=== PATIENT | male | born 1980 | race Caucasian/White ===

== ENCOUNTER 2019-07-22 10:01 | Inpatient (IN) | payer SELFPAY ==
[~2019-07-22] VITALS: Ht 180.3 cm; Wt 70.3 kg
[2019-07-22 10:12] VITALS: BP 126/69
--- NOTE | 2019-07-22 10:16 | NUR ---
Patient ambulated to bed 10 with family. RN evaluating patient at bedside.
--- NOTE | 2019-07-22 10:32 | NUR ---
Pt moved to bed 6.
[2019-07-22] MEDS ORDERED: NACL 0.9% 2,000 ML IV SCH (10:37)
[2019-07-22] MEDS ORDERED: NACL 0.9% 1,000 ML IV ONE (10:37)
[2019-07-22] MEDS ORDERED: ONDANSETRON 4 MG/2 ML VIAL IVP ONE (10:40)
[2019-07-22] MEDS ORDERED: PROMETHAZINE 25 MG/ML VIAL IM ONE (10:40)
--- NOTE | 2019-07-22 10:41 | NUR ---
38 y/o male presenting with c/c of vomiting x1 day, bodyaches 7/10 pain, generalized weakness. per family member pt has had hx of dka and its appearing with similar symptoms. pt a/ox4 neuro in assessment. pt nka. medical hx of dm. rx insulin. no diarreah. side rail x1. family at bedside. bowel sounds normoactive.
--- NOTE | 2019-07-22 10:57 | NUR ---
xray at bedside ; portable
--- NOTE | 2019-07-22 11:15 | NUR ---
Kurtis carias in [facility] - 07/22/19 at 1119 by MMTHEM Breathing treatment administered by respiratory therapist at bedside.
--- NOTE | 2019-07-22 11:15 | NUR ---
ABG obtained by respiratory therapist.
--- NOTE | 2019-07-22 11:15 | NUR ---
LAB AT BEDSIDE
[2019-07-22 11:26] LABS: BASOPHILS % (AUTO) 0.4 % (0.0-2.0); HEMATOCRIT 50.3 % (36-52); HEMOGLOBIN 17.2 g/dL (12.0-18.0); LYMPHOCYTES # (AUTO) 1.8 K/uL (2.0-11.5); LYMPHOCYTES % (AUTO) 27.2 % (20.5-51.1); MEAN CORPUSCULAR HEMOGLOBIN 31 pg (27-31); MEAN CORPUSCULAR HGB CONC 34 g/dL (33-37); MEAN CORPUSCULAR VOLUME 89.8 fL (80-94); MONOCYTES # (AUTO) 0.7 K/uL (0.8-1.0); MONOCYTES % (AUTO) 10.7 % (1.7-9.3); NEUTROPHILS # (AUTO) 4.1 K/uL (1.8-7.7); NEUTROPHILS % (AUTO) 61.7 % (42.2-75.2); PLATELET COUNT (AUTO) 258 K/uL (140-450); RED CELL DISTRIBUTION WIDTH 14.1 % (11.6-13.7); WHITE BLOOD COUNT (AUTO) 6.7 K/uL (4.8-10.8)
[2019-07-22 11:32] LABS: ANION GAP 30.3 (8-16); CARBON DIOXIDE 10.8 mmol/L (21-32); CHLORIDE 98 mmol/L (98-107); CREATININE 1.3 mg/dL (0.7-1.3); GFR ARICAN-AMERICAN 80 mL/min (>90); GLUCOSE 257 mg/dL (74-106); POTASSIUM 4.1 mmol/L (3.5-5.1); SODIUM SERUM 135 mmol/L (136-145); UREA NITROGEN, BLOOD 14 mg/dL (7-18)
[2019-07-22 11:43] LABS: ACETONE, SERUM SMALL (NEGATIVE)
[2019-07-22 11:47] LABS: AMYLASE 52 U/L (25-115); ASPARTATE AMINOTRANSFERASE 12 U/L (15-37); LIPASE 79 U/L (73-393); MAGNESIUM 1.8 mg/dL (1.8-2.4); TOTAL BILIRUBIN 0.8 mg/dL (0.0-1.0)
[2019-07-22] MEDS ORDERED: INSU10SU6 SUBQ (11:49)
[2019-07-22] MEDS ORDERED: SODIUM BICARBONATE 8.4% PFS 50 MEQ/50 ML SYR IVP ONE (12:20)
--- NOTE | 2019-07-22 12:20 | NUR ---
Dr. Ellsworth is evaluating the patient at bedside.
[2019-07-22] MEDS ORDERED: LORazepam 2 MG/ML VIAL IM/IVP PRN (12:35)
[2019-07-22] MEDS ORDERED: ACETAMINOPHEN 325 MG TAB PO PRN (12:35)
[2019-07-22] MEDS ORDERED: DOCUSATE SODIUM 100 MG GELCAP PO PRN (12:35)
[2019-07-22] MEDS ORDERED: HYDROcodone/APAP 5/325 MG 1 TAB TAB PO PRN (12:35)
[2019-07-22] MEDS ORDERED: MORPHINE SULFATE 2 MG/ML SYR IVP PRN (12:35)
[2019-07-22] MEDS ORDERED: ONDANSETRON 4 MG/2 ML VIAL IM/IVP PRN (12:35)
--- NOTE | 2019-07-22 13:25 | NUR ---
Patient will be admitted to care of DR PHILLIPS. Admited to TELEMETRY. Will go to room 111A. Belongings list completed; SISTER TOOK ALL BELONGING HOME, PT AWARE. Report to SIRIA LEES.
--- NOTE | 2019-07-22 13:25 | NUR ---
PT ARRIVED ON THE UNIT. OBTAINED VITALS PT APPEARS STABLE AND IN NO APPARENT DISTRESS. ALL SAFETY MEASURES ARE IN PLACE COMPLETED QUESTIONS. PERFORMED HEAD TO TOE ASSESSMENT WILL CONTINUE TO MONITOR.
[2019-07-22] MEDS ORDERED: DEXTROSE 50% 50 ML SYR IVP PRN (13:40)
[2019-07-22] MEDS ORDERED: INSULIN REGULAR, HUMAN 100 UNIT in NACL 0.9% 100 ML IV SCH ×2 (13:40)
[2019-07-22] MEDS ORDERED: HYDROmorphone 1 MG/ML AMP IVP SCH (13:45)
[2019-07-22 14:12] LABS: MAGNESIUM 1.7 mg/dL (1.8-2.4); PHOSPHORUS 2.6 mg/dL (2.5-4.9); THYROID STIMULATING HORMONE 0.68 uIU/mL (0.34-3.74)
--- NOTE | 2019-07-22 14:20 | NUR ---
TRANSFERRED PT TO ICU PT PERSONAL BELONGINGS ARE WITH HIS SISTER, GAVE REPORT TO ICU CHARGE NURSE. PT APPEARS STABLE AND IN NO APPARENT DISTRESS. ALL SAFETY MEASURES ARE IN PLACE.
[2019-07-22] MEDS ORDERED: KCL 20 MEQ/WATER INJ PREMIX 100 ML IV ONE (14:30)
[2019-07-22] MEDS: NACL 0.9% 500 ML IV SCH ×2 (14:35→16:31)
--- NOTE | 2019-07-22 14:35 | NUR ---
PT RESTING IN BED COMFORTABLY. A/O X4. MAKES NEEDS KNOWN. ST ON MONITOR. IN ROOM AIR. SPO2 100%. SKIN DRY AND WARM TO TOUCH. LUNGS CLEAR. ABDOMEN SOFT, FLAT AND NON-TENDER. HYPOACTIVE BOWEL SOUND. PERIPHERAL LINE NOTED ON RFA 20G AND LAC 18G. INTACT LINES. FLUSHED. SKIN INTACT. DENIES PAIN. DENIES NAUSEA OR VOMITING. DENIES DIZZINESS. HOB ELEVATED. BED IN LOW POSITION, LOCKED. CALL LIGHT WITHIN REACH. WILL CONTINUE TO MONITOR.
[2019-07-22 14:52] VITALS: BP 117/75
--- NOTE | 2019-07-22 15:00 | NUR ---
PT DENIES NAUSEA OR VOMITING. DENIES DIZZINESS. IN ROOM AIR. SATURATING 98%. NO SOB OR RESPIRATORY DISTRESS NOTED. WILL CONTINUE TO MONITOR.
--- NOTE | 2019-07-22 15:15 | NUR ---
BS 235. DR. AZUL AWARE. WILL START INSULIN DRIP PER ORDER.
[2019-07-22] MEDS: BLOOD GLUCOSE MONITORING 1 DEV DEV FS SCH ×9 (15:23→23:17)
[2019-07-22] MEDS ORDERED: MAGNESIUM OXIDE 400 MG TAB PO SCH (15:40)
--- NOTE | 2019-07-22 15:43 | NUR ---
PT REFUSED STRAIGHT CATH TO BE INSERTED AT THIS TIME. SAID GIVE HIM MORE TIME.
[2019-07-22 16:00] VITALS: BP 111/72
[2019-07-22 16:40] LABS: ANION GAP 24.3 (8-16); CARBON DIOXIDE 14.1 mmol/L (21-32); CREATININE 1.1 mg/dL (0.7-1.3); POTASSIUM 3.4 mmol/L (3.5-5.1)
[2019-07-22 16:44] LABS: MAGNESIUM 1.6 mg/dL (1.8-2.4); PHOSPHORUS 2.3 mg/dL (2.5-4.9)
[2019-07-22 17:23] LABS: BILIRUBIN,URINE 1+ (NEGATIVE); BLOOD, URINE 1+ (NEGATIVE); LEUKOCYTE ESTERASE ,URINE NEGATIVE (NEGATIVE); NITRITE, URINE NEGATIVE (NEGATIVE); UGLUCOSE 3+ (NEGATIVE)
[2019-07-22 17:29] LABS: BARBITURATE, URINE NEG. ng/ml (NEG <=200); BENZODIAZEPINE, URINE NEG. ng/mL (NEG <=200); CANNABINOID, URINE NEG. ng/mL (NEG <=50); COCAINE, URINE NEG. ng/mL (NEG <=300); OPIATE, URINE NEG. ng/mL (NEG <=2000); PHENCYCLIDINE SCREEN,URINE NEG. ng/mL (NEG <=25)
[2019-07-22 18:00] VITALS: BP 110/76
--- NOTE | 2019-07-22 18:16 | NUR ---
NO CHANGE IN CONDITION. SR ON MONITOR. CONTINUE ON INSULIN DRIP. FAMILY AT THE BEDSIDE.
[2019-07-22] MEDS: DEXT 5% / NACL 0.45% 1,000 ML IV SCH ×2 (18:32→22:46)
[2019-07-22 18:35] LABS: APPEARANCE,URINE CLEAR (CLEAR); COLOR,URINE STRAW (YELLOW)
[2019-07-22 18:36] LABS: RBC,URINE 0-5 /HPF (0-5); WBC,URINE NONE SEEN /HPF (0-5)
--- NOTE | 2019-07-22 19:22 | NUR ---
REPORT GIVEN TO VENDING MECHANIC RN FOR CONTINUITY OF CARE. PT STABLE.
[2019-07-22] MEDS ORDERED: SODIUM PHOS / POTASSIUM PHOS 1 PKT PDR PO SCH (19:30)
--- NOTE | 2019-07-22 19:40 | NUR ---
RECEIVED PT FROM PANCHO RN. PT IS AWAKE, ALERT. FOLLOWS COMMANDS. SINUS RHYTHM ON MONITOR. NO SOB NOTED. RESPIRATIONS EVEN AND UNLABORED. CHEST AREA IS RETRACTED. ABDOMEN IS SOFT AND FLAT. BOWEL SOUNDS ACTIVE. RIJ CENTRAL LINE, TLC. INSULIN INFUSING AT 3ML/HR, NS INFUSING AT 200ML/HR. SKIN IS WARM AND DRY. CAP REFILL IS LESS THAN 3 SECONDS. HOB 30 DEGREES. BED LOCKED IN LOWEST POSITION.
[2019-07-22 20:00] VITALS: BP 112/72
--- NOTE | 2019-07-22 20:00 | NUR ---
LABS WERE DRAWN AT BEDSIDE.
[2019-07-22 20:31] LABS: CARBON DIOXIDE 18.6 mmol/L (21-32); POTASSIUM 3.6 mmol/L (3.5-5.1)
[2019-07-22] MEDS ORDERED: KCL 20 MEQ/WATER INJ PREMIX 100 ML IV SCH (21:30)
[2019-07-22 21:31] LABS: MAGNESIUM 1.6 mg/dL (1.8-2.4); PHOSPHORUS 1.4 mg/dL (2.5-4.9)
[2019-07-22 22:00] VITALS: BP 109/73
--- NOTE | 2019-07-22 22:15 | NUR ---
PT HAS EYES CLOSED. VITAL SIGNS STABLE. NO DISTRESS NOTED. WILL CONTINUE TO MONITOR.
[2019-07-22] MEDS ORDERED: MAG SULF 2000 MG/WATER PREMIX 50 ML IV ONE (22:45)
[2019-07-22] MEDS ORDERED: MAG SULF 2000 MG/WATER PREMIX 50 ML IV SCH (23:15)
[2019-07-22] MEDS ORDERED: SODIUM PHOSPHATE 15 MMOLE in NACL 0.9% 250 ML IV SCH (23:45)
[2019-07-22] MEDS: SODIUM PHOS / POTASSIUM PHOS 1 PKT PDR PO SCH (23:48)
[2019-07-23] VITALS (11 sets, daily range): BP systolic 94–125; BP diastolic 70–84
[2019-07-23] MEDS: BLOOD GLUCOSE MONITORING 1 DEV DEV FS SCH ×15 (00:05→20:21)
--- NOTE | 2019-07-23 00:12 | NUR ---
PT HAS EYES CLOSED. PT IS SELF REPOSITIONING. NO SOB NOTED, RESPIRATIONS EVEN AND UNLABORED. HOB 30 DEGREES. BED LOCKED IN LOWEST POSITION. WILL CONTINUE TO MONITOR.
[2019-07-23 00:32] LABS: ANION GAP 13.4 (8-16); CARBON DIOXIDE 21.9 mmol/L (21-32); PHOSPHORUS 1.2 mg/dL (2.5-4.9); POTASSIUM 3.3 mmol/L (3.5-5.1)
--- NOTE | 2019-07-23 02:45 | NUR ---
PT HAS EYES CLOSED. PT IS SELF REPOSITIONING. RESPIRATIONS EVEN UNLABORED. NO SOB NOTED. HOB 30 DEGREES. BED LOCKED IN LOWEST POSITION. WILL CONTINUE TO MONITOR.
[2019-07-23] MEDS: SODIUM PHOS / POTASSIUM PHOS 1 PKT PDR PO SCH (02:50)
[2019-07-23] MEDS: KCL 20 MEQ/WATER INJ PREMIX 100 ML IV SCH ×2 (03:18→05:31)
[2019-07-23] MEDS: DEXT 5% / NACL 0.45% 1,000 ML IV SCH ×3 (04:30→14:24)
--- NOTE | 2019-07-23 04:34 | NUR ---
LABS DRAWN AT BEDSIDE.
[2019-07-23 04:50] LABS: CARBON DIOXIDE 24.3 mmol/L (21-32); POTASSIUM 3.3 mmol/L (3.5-5.1)
[2019-07-23 04:54] LABS: MAGNESIUM 1.9 mg/dL (1.8-2.4); PHOSPHORUS 1.2 mg/dL (2.5-4.9)
[2019-07-23] MEDS ORDERED: KCL 20 MEQ/WATER INJ PREMIX 100 ML IV ONE (05:20)
[2019-07-23] MEDS ORDERED: SODIUM PHOS / POTASSIUM PHOS 1 PKT PDR PO ONE (05:20)
[2019-07-23] MEDS ORDERED: SODIUM PHOS / POTASSIUM PHOS 1 PKT PDR ONE (05:24)
[2019-07-23 06:14] LABS: BASOPHILS % (AUTO) 0.4 % (0.0-2.0); EOSINOPHILS % (AUTO) 0.9 % (0.0-4.0); HEMATOCRIT 38.2 % (36-52); HEMOGLOBIN 13.4 g/dL (12.0-18.0); LYMPHOCYTES # (AUTO) 1.7 K/uL (2.0-11.5); LYMPHOCYTES % (AUTO) 42.4 % (20.5-51.1); MEAN CORPUSCULAR HEMOGLOBIN 31 pg (27-31); MEAN CORPUSCULAR HGB CONC 35 g/dL (33-37); MEAN CORPUSCULAR VOLUME 88.2 fL (80-94); MONOCYTES # (AUTO) 0.4 K/uL (0.8-1.0); NEUTROPHILS # (AUTO) 1.8 K/uL (1.8-7.7); NEUTROPHILS % (AUTO) 45.3 % (42.2-75.2); PLATELET COUNT (AUTO) 175 K/uL (140-450); RED BLOOD CELL COUNT(AUTO) 4.33 MIL/uL (4.20-6.10); RED CELL DISTRIBUTION WIDTH 13.8 % (11.6-13.7)
--- NOTE | 2019-07-23 06:15 | NUR ---
PT AWAKE AND ALERT. PT USED URINAL.
--- NOTE | 2019-07-23 07:30 | NUR ---
ENDORSED TO CANDY CHAUHAN FOR CONTINUITY OF CARE.
--- NOTE | 2019-07-23 07:30 | NUR ---
RECEIVED BEDSIDE REPORT FROM GLUE MAKER BONE YOANA SHI AND JENNIFER Spencer PT SLEEPING, ROUSED BY NAME OX4. ENG/SETSWANA SPEAKING. ABLE TO FOLLOW COMMANDS. SR ON MONITOR. NO SOB NOTED. RESPIRATIONS EVEN AND UNLABORED. LUNG SOUNDS CLEAR. ABDOMEN IS SOFT AND FLAT. BOWEL SOUNDS ACTIVE. R IJ CENTRAL LINE, ASYMPTOMATIC AND DRESSING INTACT. INSULIN DRIP INFUSING AT 3ML/HR, D5 1/2NS INFUSING AT 200ML/HR. SKIN INTACT, WARM AND DRY. HOB 30 DEGREES. BED LOCKED IN LOWEST POSITION. CALL LIGHT WITHIN REACH.
--- NOTE | 2019-07-23 08:05 | NUR ---
BLOOD SUGAR CHECK DONE. PT DENIES ANY NAUSEA/ VOMITING AT THIS TIME.
--- NOTE | 2019-07-23 08:06 | NUR ---
PATIENT HAS BEEN SCREENED AND CATEGORIZED HIGH NUTRITION RISK. PATIENT WILL BE SEEN WITHIN 1-2 DAYS OF ADMISSION. 07/23/19-07/24/[address]
[2019-07-23] MEDS: PANTOPRAZOLE 40 MG INJ VIAL IVP SCH (08:10)
--- NOTE | 2019-07-23 09:10 | NUR ---
DISCHARGE PLANNIN38 Y/O MALE PATIENT FROM HOME, WHO CAME IN DUE TO INTRACTABLE NAUSEA AND VOMITING, GENERALIZED WEAKNESS X 5 DAYS. PAST MEDICAL AND SURGICAL HISTORY INCLUDE INSULIN DEPENDENT DM, RIGHT EYE CATARACTS, MEDICAL NON COMPLIANCE AND MULTIPLE HOSPITALIZATIONS FOR DKA AND RIGHT EYE CATARACT SURGERY. INITIAL DIAGNOSIS OF DIABETIC KETOACIDOSIS. LABS INCLUDE WBC 4.0, H/H 13.4/38.2, NA/K 140/3.3. ON INSULIN DRIP. PROTONIX IV. CXR ON ADMISSION NORMAL. RIJ CENTRAL LINE IN PLACE. DC PLAN PENDING ON PATIENT'S RESPONSE TO TREATMENT.
--- NOTE | 2019-07-23 09:11 | NUR ---
CALLED DR SHELL AND MADE HER AWARE OF K 3.3 AND PHOS 1.2.
[2019-07-23 09:15] LABS: MAGNESIUM 1.8 mg/dL (1.8-2.4); PHOSPHORUS 1.3 mg/dL (2.5-4.9)
[2019-07-23 09:26] LABS: ANION GAP 10.9 (8-16); CARBON DIOXIDE 22.6 mmol/L (21-32); CREATININE 0.9 mg/dL (0.7-1.3); POTASSIUM 3.5 mmol/L (3.5-5.1)
[2019-07-23] MEDS ORDERED: POTASSIUM PHOSPHATE 15 MM in NACL 0.9% 250 ML IV SCH (10:00)
--- NOTE | 2019-07-23 10:02 | NUR ---
CALLED DR MENJIVAR, MADE HIM AWARE ANION GAP HAS BEEN GOOD FOR [address] MENJIVAR SAID WILL LET DR SHELL PUT IN ORDERS WHEN SHE COMES BACK.
--- NOTE | 2019-07-23 10:59 | NUR ---
SPOKE WITH DR SHELL OVER THE PHONE. DR SHELL IS OK WITH HOLDING INSULIN DRIP AND RESUME PO DIET. ASKED IF SHE WANTS TO STOP D5 1/2NS AND CHANGE TO MAINTENANCE FLUID, DR SHELL SAID SHE WANTS TO KEEP IT.
[2019-07-23] MEDS ORDERED: DEXTROSE 50% 50 ML SYR IVP PRN (11:00)
[2019-07-23] MEDS: INSULIN LANTUS 100 UNITS/ML 10 ML VIAL SUBQ SCH (11:13)
[2019-07-23] MEDS ORDERED: BLOOD GLUCOSE MONITORING 1 DEV DEV FS SCH (11:30)
[2019-07-23] MEDS: METOCLOPRAMIDE 10 MG/2 ML INJ VIAL IVP SCH ×2 (12:06→18:00)
--- NOTE | 2019-07-23 12:30 | NUR ---
PT HAD LUNCH, REGLAN WAS GIVEN. INSTRUCT PT TO SIT UP FOR 30MIN AFTER EATING. PT VERBALIZED UNDERSTANDING.
[2019-07-23 12:45] LABS: ANION GAP 12.3 (8-16); CARBON DIOXIDE 22.5 mmol/L (21-32); CREATININE 0.9 mg/dL (0.7-1.3); POTASSIUM 3.8 mmol/L (3.5-5.1)
[2019-07-23 12:47] LABS: MAGNESIUM 1.7 mg/dL (1.8-2.4); PHOSPHORUS 1.5 mg/dL (2.5-4.9)
[2019-07-23] MEDS ORDERED: POTASSIUM PHOSPHATE 15 MM in NACL 0.9% 250 ML IV ONE (13:50)
[2019-07-23] MEDS ORDERED: SODIUM PHOS / POTASSIUM PHOS 1 PKT PDR PO SCH (14:00)
[2019-07-23] MEDS: NACL 0.45% 1,000 ML IV SCH ×3 (15:02→22:11)
[2019-07-23] MEDS: INSULIN LISPRO SLIDING SCALE 100 UNITS/ML VIAL SUBQ PRN ×3 (15:10→20:23)
--- NOTE | 2019-07-23 15:18 | NUR ---
07/23/19 RD INITIAL ASSESSMENT COMPLETED PLEASE REFER TO NUTRITION ASSESSMENT UNDER CARE ACTIVITY FOR ESTIMATED NUTRITIONAL NEEDS. 1. CONTINUE NPO EXCEPT MEDS 2. WHEN MEDICALLY APPROPRIATE, [facility] 3. NUTRITION EDUCATION WAS PROVIDED ON [facility] DIET AND PTS SISTER ACCEPTED 4. RD TO FOLLOW-UP 2-3 DAYS, HIGH RISK NIC MAYEN RD
[2019-07-23] MEDS ORDERED: MAG SULF 2000 MG/WATER PREMIX 50 ML IV SCH (16:00)
--- NOTE | 2019-07-23 17:53 | NUR ---
TRANSFERRED TO TELE 105B. REPORT GIVEN TO SAVANNA LEES.
--- NOTE | 2019-07-23 17:56 | NUR ---
RECEIVED REPORT FROM YOANA VILLANUEVA PATIENT IN STABLE CONDITION, IV FLUIDS CONTINUES, VITALS SIGNS STABLE. WILL CONTINUE TO MONITOR.
--- NOTE | 2019-07-23 19:04 | NUR ---
RECEIVED BEDSIDE REPORT FROM PC MAINTENANCE TECHNICIAN YOANA SHI AND JENNIFER Spencer PT SLEEPING, ROUSED BY NAME OX4. ENG/KAZAKH SPEAKING. ABLE TO FOLLOW COMMANDS. SR ON MONITOR. NO SOB NOTED. RESPIRATIONS EVEN AND UNLABORED. LUNG SOUNDS CLEAR. ABDOMEN IS SOFT AND FLAT. BOWEL SOUNDS ACTIVE. R IJ CENTRAL LINE, ASYMPTOMATIC AND DRESSING INTACT. INSULIN DRIP INFUSING AT 3ML/HR, D5 1/2NS INFUSING AT 200ML/HR. SKIN INTACT, WARM AND DRY. HOB 30 DEGREES. BED LOCKED IN LOWEST POSITION. CALL LIGHT WITHIN REACH. Addendum: 07/23/19 at 1908 by Simba Villagomez RN WRONG TIME, PLEASE DISCARD
--- NOTE | 2019-07-23 19:06 | NUR ---
ENDORSED CARE TO CONCHE OPERATOR NURSE. PATIENT IN STABLE CONDITION
--- NOTE | 2019-07-23 19:07 | NUR ---
RECEIVED PT IN STABLE CONDITION FROM AM NURSE FOR CONTINUITY OF CARE. AWAKE .ALERT AND ORIENTED X4. ON TELE MONITOR. WITH NO C/O ANY DISCOMFORT NOR PAIN NOTED. IVF INFUSING WELL ON THE RT IJ CENTRAL LINE TRIPLE LUMEN. CLEAR AND PATENT. WITH FAMILY AT BEDSIDE. PLAN OF CARE DISCUSSED AND VERBALIZED UNDERSTANDING. BED ON LOW POSITION. FREQ ROUNDS NEEDED. CALL LIGHT PLACED WITHIN EASY REACH. WILL CONTINUE TO MONITOR.
[2019-07-23] MEDS ORDERED: POTASSIUM PHOSPHATE 15 MM in NACL 0.9% 250 ML IV PRN (20:00)
--- NOTE | 2019-07-23 20:23 | NUR ---
BLOOD SUGAR WAS CHECKED RESULT 241. INSULIN COVERAGE GIVEN SUB Q. PROVIDE WITH SOME SNACK. WILL CONTINUE TO MONITOR.
--- NOTE | 2019-07-23 22:00 | NUR ---
MADE ROUNDS. PT ASLEEP. NO S/S OF MANY DISCOMFORT NOTED.
--- NOTE | 2019-07-23 23:00 | NUR ---
REPORT GIVEN TO YOANA TORRES FOR CONTINUITY OF CARE. PT IN STABLE CONDITION UPON REPORTING.
--- NOTE | 2019-07-23 23:01 | NUR ---
RECEIVED REPORT FROM JOHANNA. PATIENT IS LYING IN BED WITH EYES CLOSED. NO SOB OR DISTRESS NOTED. ON ROOM, AIR. IV ACCESS ON LEFT WRIST 20 GAUGE AND RIGHT IJ TRIPLE LUMEN PATENT AND INTACT. SKIN IS INTACT. PATIENT IS AMBULATORY. BED IN LOW. CALL LIGHT PLACED WITHIN PATIENT REACH. WILL CONTINUE TO MONITOR PATIENT.
--- NOTE | 2019-07-24 00:05 | NUR ---
VITAL SIGNS DONE AND INSULIN GLUCOSE CHECKED WITH RESULT OF 274 WITH INSULIN COVERAGE GIVEN. WILL CONTINUE TO MONITOR PATIENT.
[2019-07-24 00:10] VITALS: BP 106/63
[2019-07-24] MEDS: METOCLOPRAMIDE 10 MG/2 ML INJ VIAL IVP SCH ×3 (00:37→12:21)
[2019-07-24] MEDS: INSULIN LISPRO SLIDING SCALE 100 UNITS/ML VIAL SUBQ PRN ×3 (00:46→12:19)
[2019-07-24] MEDS: BLOOD GLUCOSE MONITORING 1 DEV DEV FS SCH ×4 (00:47→12:13)
[2019-07-24 04:00] VITALS: BP 115/73
[2019-07-24] MEDS: NACL 0.45% 1,000 ML IV SCH ×2 (04:05→05:49)
--- NOTE | 2019-07-24 04:05 | NUR ---
VITAL SIGNS TAKEN AND BLOOD GLUCOSE RESULT OF 219 WITH REGULAR INSULIN COVERAGE GIVEN. WILL CONTINUE TO MONITOR PATIENT.
--- NOTE | 2019-07-24 06:47 | NUR ---
PT IN STABLE CONDITION. CALL LIGHT PLACED WITHIN PATIENT REACH. WILL ENDORSE TO AM SHIFT NURSE FOR CONTINUITY OF CARE.
--- NOTE | 2019-07-24 07:06 | NUR ---
RECEIVED BEDSIDE REPORT FROM EDGER MACHINE HELPER NURSE. PATIENT IN STABLE CONDITION.
[2019-07-24 07:07] LABS: ANION GAP 9.2 (8-16); CARBON DIOXIDE 26.9 mmol/L (21-32); CREATININE 0.6 mg/dL (0.7-1.3); POTASSIUM 3.1 mmol/L (3.5-5.1)
[2019-07-24 07:33] LABS: MAGNESIUM 1.9 mg/dL (1.8-2.4); PHOSPHORUS 2.2 mg/dL (2.5-4.9)
[2019-07-24 07:41] LABS: BASOPHILS % (AUTO) 0.5 % (0.0-2.0); EOSINOPHILS % (AUTO) 0.7 % (0.0-4.0); HEMATOCRIT 35.5 % (36-52); HEMOGLOBIN 12.6 g/dL (12.0-18.0); LYMPHOCYTES # (AUTO) 1.9 K/uL (2.0-11.5); LYMPHOCYTES % (AUTO) 50.5 % (20.5-51.1); MEAN CORPUSCULAR HEMOGLOBIN 31 pg (27-31); MEAN CORPUSCULAR HGB CONC 36 g/dL (33-37); MEAN CORPUSCULAR VOLUME 86.8 fL (80-94); MONOCYTES # (AUTO) 0.4 K/uL (0.8-1.0); MONOCYTES % (AUTO) 9.9 % (1.7-9.3); NEUTROPHILS # (AUTO) 1.4 K/uL (1.8-7.7); NEUTROPHILS % (AUTO) 38.4 % (42.2-75.2); PLATELET COUNT (AUTO) 150 K/uL (140-450); RED BLOOD CELL COUNT(AUTO) 4.09 MIL/uL (4.20-6.10); RED CELL DISTRIBUTION WIDTH 14.4 % (11.6-13.7); WHITE BLOOD COUNT (AUTO) 3.7 K/uL (4.8-10.8)
[2019-07-24 08:00] VITALS: BP 102/60
[2019-07-24] MEDS ORDERED: POTASSIUM CHLORIDE 10 MEQ TABER PO SCH (08:00)
[2019-07-24] MEDS ORDERED: metFORMIN 850 MG TAB PO SCH (08:00)
[2019-07-24] MEDS: INSULIN LANTUS 100 UNITS/ML 10 ML VIAL SUBQ SCH (08:24)
[2019-07-24] MEDS: PANTOPRAZOLE 40 MG INJ VIAL IVP SCH (08:27)
--- NOTE | 2019-07-24 09:48 | NUR ---
ACKNOWLEDGED DISCHARGE ORDER FROM DR AZUL, PATIENT IS IN BED, TALKING ON CELLPHONE. IN STABLE CONDITION. WILL PREPARE PATIENT FOR DISCHARGE.
[2019-07-24] MEDS ORDERED: SODIUM PHOS / POTASSIUM PHOS 1 PKT PDR PO SCH (11:00)
--- NOTE | 2019-07-24 11:15 | NUR ---
AT THE BEDSIDE WITH DR AZUL TO REMOVE CENTRAL LINE. CENTRAL LINE REMOVED WITH NO COMPLICATIONS. DRESSING PLACED. NO REDNESS, BLEEDING OR SWELLING NOTED. DR AZUL EDUCATING PATIENT ON THE IMPORTANCE OF FOLLOWING UP WITH MEDICATION REGIMEN. WILL FOLLOW UP WITH UROLOGIST MD AT [facility], PATIENT VERBALIZED UNDERSTANDING. PENDING LAB TO COME AT 12 FOR A REDRAW OF POTASSIUM .
[2019-07-24] MEDS ORDERED: METF850T PO (11:32)
[2019-07-24] MEDS ORDERED: LANTUS SUBQ (11:32)
--- NOTE | 2019-07-24 12:15 | NUR ---
LABS COMPLETED, POTASSIUM IS 3.8, PATIENT IS EATING LUNCH AND THEN WILL PREPARE FOR DISCHARGE, MEDICATIONS WAS ALSO GIVEN AT THIS TIME. WILL CONTINUE TO FOLLOW UP.
--- NOTE | 2019-07-24 14:00 | NUR ---
PATIENT IS READY FOR DISCHARGE, NOTE FOR WORK WAS GIVEN TO BOTH PATIENT AND SISTER, PATIENT VERBALIZED UNDERSTANDING REGARDING WARRANTY ADMINISTRATOR FOLLOW UP APPT AND MEDICATIONS. ALL QUESTIONS WERE ANSWERED. PATIENT IS TO GET DRESS FOR DISCHARGE.
--- NOTE | 2019-07-24 14:07 | NUR ---
PATIENT HAS GATHERED ALL HIS BELONGINGS, IV WAS DISCONTINUED WITH LUMEN INTACT, NO REDNESS OR SWELLING NOTED. ID BAND RELEASED. PATIENT IS IN STABLE CONDITION AND WAS ESCORTED ALONG WITH SISTER TO THE LOBBY, PATIENT WAS DISCHARGED AT THIS TIME.
== END 2019-07-24 14:07 | disposition home or self-care (01) | DRG 638 ==
LOC: MED 10:01 → MTU 12:32 → MIC 14:17 → MTU 07-23 17:30
PROVIDERS: ADMIT General Practice; ATTEND General Practice
PROC: 02HV33Z Insertion of Infusion Device into Superior Vena Cava, Percutaneous Approach (ICD-10-PCS; principal; 2019-07-22)
PROC: B548ZZA Ultrasonography of Superior Vena Cava, Guidance (ICD-10-PCS; 2019-07-22)
DX: E11.10 Type 2 diabetes mellitus with ketoacidosis without coma (principal); E87.1 Hypo-osmolality and hyponatremia; N17.9 Acute kidney failure, unspecified; A08.4 Viral intestinal infection, unspecified; E11.43 Type 2 diabetes mellitus with diabetic autonomic (poly)neuropathy; E83.39 Other disorders of phosphorus metabolism; E86.0 Dehydration; K31.84 Gastroparesis; E83.42 Hypomagnesemia; Z79.4 Long term (current) use of insulin; Z91.19 Patient's noncompliance with other medical treatment and regimen; Z98.41 Cataract extraction status, right eye; Z83.3 Family history of diabetes mellitus; Z79.899 Other long term (current) drug therapy; Z82.49 Family history of ischemic heart disease and other diseases of the circulatory system
CPT/HCPCS: 36415; 36600; 71045; 80048; 80053; 80305; 81001; 82009; 82150; 82803; 82948; 83036; 83605; 83690; 83735; 84100; 84132; 84443; 85025; 85610; 85730; 86140; 87040; 87081; 87086; 87804; 94003; 94640; 96361; 96372; 96374; 96375; 99285; C1758; C9113; G0482; J1642; J1644; J1815; J2060; J2270; J2405; J2550; J2765; J3475; J3480; J7030; Q0092

== ENCOUNTER 2022-10-22 14:25 | Inpatient (IN) | payer SELFPAY ==
[~2022-10-22] VITALS: Ht 180.3 cm; Wt 84.8 kg
[~2022-10-22 14:25] MED LIST: LANTUS SUBQ; METF-713 PO
[2022-10-22 14:36] VITALS: BP 136/79
[2022-10-22] MEDS ORDERED: PIPERACILLIN/TAZOBACTAM 3.375 GM in DEXTROSE 5% 50 ML IV ONE (15:10)
[2022-10-22] MEDS ORDERED: VANCOMYCIN 1,000 MG in DEXTROSE 5% 250 ML IV ONE (15:10)
--- NOTE | 2022-10-22 15:14 | NUR ---
RAD AT BEDSIDE
[2022-10-22] MEDS ORDERED: PIPERACILLIN/TAZOBACTAM 3.375 GM VIAL IV ONE ×2 (15:25→22:40)
[2022-10-22 15:26] LABS: BASOPHILS # (AUTO) 0.1 K/uL (0.00-0.22); BASOPHILS % (AUTO) 0.7 % (0.0-2.0); EOSINOPHILS # (AUTO) 0.3 K/uL (0-0.4); HEMATOCRIT 36.8 % (36-52); HEMOGLOBIN 12.7 g/dL (12.0-18.0); LYMPHOCYTES % (AUTO) 10.7 % (20.5-51.1); MEAN CORPUSCULAR HEMOGLOBIN 29 pg (27-31); MEAN CORPUSCULAR HGB CONC 35 g/dL (33-37); MEAN CORPUSCULAR VOLUME 84.7 fL (80-94); MONOCYTES # (AUTO) 0.8 K/uL (0.8-1.0); MONOCYTES % (AUTO) 8.6 % (1.7-9.3); NEUTROPHILS # (AUTO) 7.2 K/uL (1.8-7.7); PLATELET COUNT (AUTO) 343 K/uL (140-450); RED BLOOD CELL COUNT(AUTO) 4.34 MIL/uL (4.20-6.10); RED CELL DISTRIBUTION WIDTH 12.9 % (11.6-13.7); WHITE BLOOD COUNT (AUTO) 9.3 K/uL (4.8-10.8)
--- NOTE | 2022-10-22 15:28 | NUR ---
pt swabbed for covid(chelsi). handed to lab
--- NOTE | 2022-10-22 15:36 | NUR ---
42/M PRESENTS TO ED WITH C/O SORE TO BOTTOM OF RIGHT FOOT X1 MONTH. STATES HE WAS SEEN BY A DOCTOR IN [place] AND GIVEN AN ANTIBIOTIC OINTMENT BUT REPORTS NO RELIEF OF SYMPTOMS. PATIENT DENIES PAIN BUT STATES CONCERNS THAT TOES SEEM TO BE DEVELOPING SORES AND CHANGING COLORS. OTHERWISE PATIENT DENIES FEVERS, CHILLS, N/V/D.
[2022-10-22 15:45] LABS: ALBUMIN 2.7 g/dL (3.4-5.0); ANION GAP 7.5 (8-16); CARBON DIOXIDE 32.3 mmol/L (21-32); CREATININE 0.9 mg/dL (0.6-1.3); POTASSIUM 3.8 mmol/L (3.5-5.1)
[2022-10-22] MEDS ORDERED: VANCOMYCIN 1,000 MG VIAL ONE (15:55)
--- NOTE | 2022-10-22 17:37 | NUR ---
Patient noted to have existing wounds upon arrival to ER. Photos taken of wound and placed in chart. Wound covered with dressing. Physician informed.
[2022-10-22] MEDS ORDERED: DOCUSATE SODIUM 100 MG GELCAP PO PRN (17:40)
[2022-10-22] MEDS ORDERED: MAG SULF 2000 MG/WATER PREMIX 50 ML IV PRN (17:40)
[2022-10-22] MEDS ORDERED: MORPHINE SULFATE 2 MG/ML SYR IVP PRN (17:40)
[2022-10-22] MEDS ORDERED: ONDANSETRON 4 MG/2 ML VIAL IVP PRN (17:40)
[2022-10-22] MEDS ORDERED: ACETAMINOPHEN 325 MG TAB PO PRN (17:40)
[2022-10-22] MEDS ORDERED: ZOLPIDEM 10 MG TAB PO PRN (17:40)
[2022-10-22] MEDS ORDERED: LORazepam 2 MG/ML VIAL IVP PRN (17:40)
[2022-10-22] MEDS ORDERED: POTASSIUM CHLORIDE 10 MEQ TABER PO PRN (17:40)
[2022-10-22] MEDS ORDERED: DEXTROSE 50% 50 ML SYR IVP PRN (17:45)
[2022-10-22] MEDS ORDERED: VANCOMYCIN PER PHARMACY MC PRN (17:45)
--- NOTE | 2022-10-22 18:53 | NUR ---
NO PRINTERS AVAILABLE [facility] WORKING TO PRINT OUT WOUND PICTURES, ADMIN MADE AWARE.
--- NOTE | 2022-10-22 19:17 | NUR ---
Pt report given to YOANA LUCERO. Transfer of care at this time.
--- NOTE | 2022-10-22 20:01 | NUR ---
Meal provided to pt according to diet orders. Tolerated well.
--- NOTE | 2022-10-22 21:30 | NUR ---
Patient will be admitted to care of MD Ralph. Admited to Tele. Will go to room 108A. Belongings list completed. Report given to YOANA Falcon. Questions/concerns answered.
--- NOTE | 2022-10-22 21:30 | NUR ---
NURSE REPORT REPORT OBTAINED FROM THE ER NURSE NIC. SHE HAD BROUGHT THE PATIENT VIA GURNEY AND GAVE REPORT ON THE UNIT. VSS. AFEB. NO C/O PAIN OR DISCOMFORT. PATIENT JUST WENT TO SLEEP WHEN HE CAME TO THE ROOM.
[2022-10-22] MEDS: BLOOD GLUCOSE MONITORING 1 DEV DEV FS SCH (22:52)
[2022-10-22] MEDS: PIPERACILLIN/TAZOBACTAM 3.375 GM in DEXTROSE 5% 50 ML IV SCH (22:56)
[2022-10-22] MEDS: INSULIN LISPRO SLIDING SCALE 100 UNITS/ML VIAL SUBQ PRN (22:57)
[2022-10-23] VITALS: BP 119/70
--- NOTE | 2022-10-23 00:15 | NUR ---
NURSE NOTES VSS. AFEB. NO C/O PAIN OR DISCOMFORT. TELE MONITOR WITH SR 91.
[2022-10-23 04:00] VITALS: BP 110/57
--- NOTE | 2022-10-23 04:05 | NUR ---
NURSE NOTES VSS. AFEB. NO C/O PAIN OR DISCOMFORT. TELE MONITOR WITH SR 88
[2022-10-23] MEDS ORDERED: PIPERACILLIN/TAZOBACTAM 3.375 GM VIAL IV ONE (05:22)
[2022-10-23] MEDS: PIPERACILLIN/TAZOBACTAM 3.375 GM in DEXTROSE 5% 50 ML IV SCH ×3 (05:35→21:40)
[2022-10-23] MEDS ORDERED: VANCOMYCIN HCL 1.25 GM in DEXTROSE 5% 250 ML IV SCH (06:00)
[2022-10-23 06:02] LABS: BASOPHILS % (AUTO) 0.5 % (0.0-2.0); EOSINOPHILS # (AUTO) 0.3 K/uL (0-0.4); EOSINOPHILS % (AUTO) 3.3 % (0.0-4.0); HEMATOCRIT 31.2 % (36-52); HEMOGLOBIN 10.7 g/dL (12.0-18.0); LYMPHOCYTES # (AUTO) 1.3 K/uL (2.0-11.5); LYMPHOCYTES % (AUTO) 14.1 % (20.5-51.1); MEAN CORPUSCULAR HEMOGLOBIN 29 pg (27-31); MEAN CORPUSCULAR HGB CONC 34 g/dL (33-37); MEAN CORPUSCULAR VOLUME 84.5 fL (80-94); MONOCYTES % (AUTO) 10.5 % (1.7-9.3); NEUTROPHILS # (AUTO) 6.5 K/uL (1.8-7.7); NEUTROPHILS % (AUTO) 71.6 % (42.2-75.2); PLATELET COUNT (AUTO) 303 K/uL (140-450); RED BLOOD CELL COUNT(AUTO) 3.69 MIL/uL (4.20-6.10); RED CELL DISTRIBUTION WIDTH 12.9 % (11.6-13.7); WHITE BLOOD COUNT (AUTO) 9.1 K/uL (4.8-10.8)
[2022-10-23 06:24] LABS: CARBON DIOXIDE 28.5 mmol/L (21-32); CREATININE 0.9 mg/dL (0.6-1.3); POTASSIUM 3.5 mmol/L (3.5-5.1)
[2022-10-23] MEDS: BLOOD GLUCOSE MONITORING 1 DEV DEV FS SCH ×4 (06:52→21:19)
[2022-10-23] MEDS: INSULIN LISPRO SLIDING SCALE 100 UNITS/ML VIAL SUBQ PRN ×4 (06:53→21:39)
--- NOTE | 2022-10-23 06:54 | NUR ---
NURSE NOTES AM BG 302. GIVEN 8 UNITS HUMALOG
--- NOTE | 2022-10-23 07:02 | NUR ---
receive the patinet from the night assistant rn in rm 108A aox4 with admitting diagnosis of diabetic foot ulcer . will continue to monitor .
--- NOTE | 2022-10-23 07:06 | NUR ---
NURSE NOTES INPATIENT PHARMACY WAS CALLED AND ASKED FOR A DOSE OF 1.25 GM VANCOMYCIN. DOSE DUE AT 0600. NOT ABLE TO DO OVERRIDE IN [place].
--- NOTE | 2022-10-23 07:25 | NUR ---
NURSE REPORT REPORT GIVEN DAYSHIFT NURSE LUCIANA TO ASSUME CARE OF PATIENT. ALL QUESTIONS ANSWERED. GIVEN IVPB ZOSYN AND THIS NURSE IS WAITING FOR VANCO TO BE AVAILABLE FROM THE PHARMACY.
[2022-10-23] MEDS: VANCOMYCIN 1.25GM PREMIX 250 ML IV SCH ×2 (08:04→17:52)
--- NOTE | 2022-10-23 08:10 | NUR ---
NURSE NOTES IVPB VANCOMYCIN 1.25 GM GIVEN BY THIS NURSE. DAYSHIFT NURSE LUCIANA WAS MADE AWARE THAT THE IVPB VANCO WASN'T AVAILABLE SINCE NOT ABLE TO OVERRIDE 1.25 GM IN [place].
[2022-10-23 08:40] VITALS: BP 110/57
[2022-10-23] MEDS ORDERED: INSULIN LANTUS 100 UNITS/ML 10 ML VIAL SUBQ SCH (09:00)
--- NOTE | 2022-10-23 10:19 | NUR ---
PATIENT HAS BEEN SCREENED AND CATEGORIZED HIGH NUTRITION RISK. PATIENT WILL BE SEEN WITHIN 1-2 DAYS OF ADMISSION. FNS REFERRAL RECEIVED FOR "UNHEALED WOUND" ON 10/23/22. REVIEWED BY MYKEL THOMPSON RD
[2022-10-23 12:00] VITALS: BP 101/54
[2022-10-23] MEDS: INSULIN LANTUS 100 UNITS/ML 10 ML VIAL SUBQ SCH ×2 (12:36→21:41)
--- NOTE | 2022-10-23 14:05 | NUR ---
DC PLANNING ASSESSMENT COMPLETE PLEASE REFER TO ASSESSMENT FOR ADDITIONAL DETAILS MET WITH PT AT BEDSIDE TO COMPLETE ASSESSMENT. PT IS A 42 YR OLD MALE ADMITTED TO [facility] FROM HOME WITH DX OF DIABETIC FOOT ULCER. PT HAS PAST MEDICAL HX OF DIABETES. PT REPORTS NOT HAVING PCP IN THE STATES HE TYPICALLY MEETS WITH A DR IN [place], REGULARLY. PT REPORTS ALL CARE AND PRESCRIPTIONS ARE MET BY PHYSICIANS IN [place]. PT REFERRED TO [facility]. ENCOURAGED PT TO PROVIDE SHUNRALON SPECIALIST WITH ALL NECESSARY DOCUMENTS NEEDED IN ORDER TO OBTAIN FULL SCOPE [facility], PT VERBALIZED UNDERSTANDING. PT REPORTS BEING INDEPENDENT IN ALL ACTIVITIES AND DENIES USE OF DME. PT RESIDES IN A TWO STORY HOME WITH HIS SISTER, AT THE ADDRESS LISTED ON FILE. PT REPORTS TENTATIVE DC PLAN IS TO RETURN HOME PROVIDING HIS OWN TRANSPORATION, WHEN MEDICALLY STABLE. PT ACCEPTED WITH [facility] OFFERED BY [facility]. Addendum: 10/23/22 at 1407 by Florin NIEVES Amended: Links added.
[2022-10-23 16:00] VITALS: BP 94/47
--- NOTE | 2022-10-23 16:23 | NUR ---
10/23/22 RD INITIAL ASSESSMENT COMPLETED PLEASE REFER TO NUTRITION ASSESSMENT UNDER CARE ACTIVITY FOR ESTIMATED NUTRITIONAL NEEDS. 1. CONTINUE CCHO 60 GM DIET TOLERATED 2. RECOMMEND CARITO BID PER RX PROTOCOL FOR WOUND SUPPORT (PROVIDES 160 KCAL AND 5 GM PROTEIN DAILY) 3. PROVIDED NUTRITION EDUCATION AND HANDOUTS FOR DM 4. RD TO FOLLOW-UP 3-5 DAYS, MODERATE RISK REVIEWED BY MYKEL THOMPSON RD
--- NOTE | 2022-10-23 19:15 | NUR ---
will endorse to slot shift manager rn for continuity of care
[2022-10-23 20:00] VITALS: BP 100/60
--- NOTE | 2022-10-23 20:07 | NUR ---
PER RAD STAFF THE PT IS FOR BONE SCAN CYNTHIA . , MAKE SURE THERE IS GOOD IV ACCESS - WILL ENDORSE .
--- NOTE | 2022-10-23 23:14 | NUR ---
DR. WADE ROUNDS , WOUND CLEAN AND DRESS BY DR. WADE . PT. TOLERATING THE PROCEDURE .
[2022-10-23] MEDS ORDERED: FLUCONAZOLE 100 MG TAB PO SCH (23:15)
[2022-10-24] VITALS: BP 99/62
--- NOTE | 2022-10-24 00:46 | NUR ---
DR. LEDEZMA UPDATED ABOUT SERUM ELECTROLYTES
[2022-10-24 04:00] VITALS: BP 100/59
--- NOTE | 2022-10-24 04:00 | NUR ---
NO COMPLAIN MADE , CALL LIGHT WITHIN REACH .
[2022-10-24] MEDS: PIPERACILLIN/TAZOBACTAM 3.375 GM in DEXTROSE 5% 50 ML IV SCH ×3 (05:40→20:32)
--- NOTE | 2022-10-24 06:00 | NUR ---
RESTING ON BEDB , NO COMPLAIN MADE .
[2022-10-24 06:20] LABS: BASOPHILS # (AUTO) 0.1 K/uL (0.00-0.22); BASOPHILS % (AUTO) 0.7 % (0.0-2.0); EOSINOPHILS # (AUTO) 0.4 K/uL (0-0.4); EOSINOPHILS % (AUTO) 4.8 % (0.0-4.0); HEMOGLOBIN 10.8 g/dL (12.0-18.0); LYMPHOCYTES # (AUTO) 1.4 K/uL (2.0-11.5); LYMPHOCYTES % (AUTO) 17.9 % (20.5-51.1); MEAN CORPUSCULAR HEMOGLOBIN 29 pg (27-31); MEAN CORPUSCULAR HGB CONC 35 g/dL (33-37); MONOCYTES # (AUTO) 0.8 K/uL (0.8-1.0); MONOCYTES % (AUTO) 10.2 % (1.7-9.3); NEUTROPHILS # (AUTO) 5.1 K/uL (1.8-7.7); NEUTROPHILS % (AUTO) 66.4 % (42.2-75.2); PLATELET COUNT (AUTO) 307 K/uL (140-450); RED BLOOD CELL COUNT(AUTO) 3.69 MIL/uL (4.20-6.10); RED CELL DISTRIBUTION WIDTH 12.9 % (11.6-13.7); WHITE BLOOD COUNT (AUTO) 7.7 K/uL (4.8-10.8)
[2022-10-24 06:49] LABS: ANION GAP 9.7 (8-16); CARBON DIOXIDE 30.1 mmol/L (21-32); CREATININE 0.8 mg/dL (0.6-1.3); POTASSIUM 3.8 mmol/L (3.5-5.1)
[2022-10-24] MEDS: BLOOD GLUCOSE MONITORING 1 DEV DEV FS SCH ×4 (06:52→20:08)
--- NOTE | 2022-10-24 07:40 | NUR ---
RECEIVED REPORT FROM NIC FOR CONTINUITY OF CARE. INITIAL ASSESSMENT DONE. IV SL. IV SITE INTACT. OPEN WOUND TO RT FOOT. DRESSING INTACT. NO C/O PAIN OR DISCOMFORT. CALL LIGHT KEPT WITHIN REACH. WILL CONTINUE TO MONITOR.
[2022-10-24] MEDS: VANCOMYCIN 1.25GM PREMIX 250 ML IV SCH ×2 (07:41→19:04)
--- NOTE | 2022-10-24 07:42 | NUR ---
SARAH THROUGH WNL - PER PHARMACIST ANA GIVE IT - ENDORSED TO NIC , POULTRY HATCHERY MAN - SARAH TIV IS ON GOING , NIC VERBALIZES UNDERSTANDING . ENDORSED FOR CONT. OF CARE .
[2022-10-24 08:00] VITALS: BP 121/71
--- NOTE | 2022-10-24 08:00 | NUR ---
Patient's Plan of Care was discussed and reviewed with HEALTH SCIENCE SPECIALIST: LUBA STARK
[2022-10-24] MEDS: INSULIN LANTUS 100 UNITS/ML 10 ML VIAL SUBQ SCH ×2 (08:25→20:16)
--- NOTE | 2022-10-24 08:25 | NUR ---
SCHEDULED MEDICATION GIVEN. TOLERATING WELL.
--- NOTE | 2022-10-24 11:53 | NUR ---
BS CHECKED 334. INSULIN WAS GIVEN PER SLIDING SCALE. TOLERATING WELL.
[2022-10-24] MEDS: INSULIN LISPRO SLIDING SCALE 100 UNITS/ML VIAL SUBQ PRN ×3 (11:54→20:14)
--- NOTE | 2022-10-24 12:26 | NUR ---
IV ABT ZOSYN WAS GIVEN BY VIRGILIO LEES. TOLERATING WELL.
[2022-10-24 16:00] VITALS: BP 125/74
--- NOTE | 2022-10-24 17:08 | NUR ---
BS CHECKED 269. INSULIN WAS GIVEN PER SLIDING SCALE.
--- NOTE | 2022-10-24 19:04 | NUR ---
SCHEDULED IV ABT VANCOMYCIN WAS GIVEN BY VIRGILIO LEES. TOLERATING WELL.
--- NOTE | 2022-10-24 19:15 | NUR ---
RECEIVED CALLED FROM RADIOLOGY STATED THAT BONE SCAN WAS CANCELLED D/T MECHANICAL ISSUES. PT MADE AWARE.
--- NOTE | 2022-10-24 19:20 | NUR ---
RECEIVED PATIENT LYING ON THE BED COMFORTABLY, NO SIGNS OF ACUTE DISTRESS NOTED, PATIENT DENIES PAIN AT THIS TIME. RECEIVED CALL FROM HI, BONE SCAN SCHEDULED TONIGHT IS CANCELLED, DUE TO CAMERA NOT WORKING. PATIENT WAS INFORMED. ALL SAFETY MEASURES IN PLACE.
--- NOTE | 2022-10-24 19:26 | NUR ---
BEDSIDE REPORT GIVEN TO MUSICAL THERAPIST ANNALIZA FOR CONTINUITY OF CARE. ENDORSED TO ANNALIZA BONE SCAN WAS CANCELLED D/T MECHANICAL ISSUES. REMAINS STABLE.
[2022-10-24 20:00] VITALS: BP 111/67
--- NOTE | 2022-10-24 20:32 | NUR ---
PATIENT'S BLOOD SUGAR 251 MG/DL, 6 UNITS INSULIN PER SLIDING SCALE GIVEN AND SCHEDULED INSULIN GIVEN ORDERED. IV ANTIBIOTIC GIVEN ORDERED. PATIENT DENIES PAIN, NO SOB NOTED. WOUND ON RIGHT FOOT( PLANTAR) HAS INTACT DRESSING. PATIENT IS CONTINENT AND USES THE RESTROOM, GAIT STEADY. ALL SAFETY MEASURES IN PLACE.
--- NOTE | 2022-10-25 02:25 | NUR ---
PATIENT IS ASLEEP, NO SIGNS OF DISTRESS NOTED, NO SIGNS OF PAIN NOTED. CALL LIGHT WITHIN REACH.
[2022-10-25 04:00] VITALS: BP 104/67
[2022-10-25] MEDS: PIPERACILLIN/TAZOBACTAM 3.375 GM in DEXTROSE 5% 50 ML IV SCH ×3 (04:53→21:01)
[2022-10-25] MEDS: VANCOMYCIN 1.25GM PREMIX 250 ML IV SCH ×2 (06:21→18:16)
[2022-10-25] MEDS: BLOOD GLUCOSE MONITORING 1 DEV DEV FS SCH ×4 (06:30→20:33)
--- NOTE | 2022-10-25 06:30 | NUR ---
BLOOD SUGAR 148 MG/DL, NO INSULIN COVERAGE NEEDED. SCHEDULED ANTIBIOTIC GIVEN ORDERED.
--- NOTE | 2022-10-25 07:07 | NUR ---
ENDORSED PATIENT TO DAY NURSE LIANA FOR CONTINUITY OF CARE. PATIENT IN STABLE CONDITION.
--- NOTE | 2022-10-25 07:20 | NUR ---
ASSUMED CONTINUITY OF CARE. INITIAL ASSESSMENT DONE. KEEP COMFORTABLE ON BED. CALL LIGHT WITHIN REACH.
[2022-10-25 07:26] LABS: BASOPHILS # (AUTO) 0.1 K/uL (0.00-0.22); EOSINOPHILS # (AUTO) 0.4 K/uL (0-0.4); EOSINOPHILS % (AUTO) 4.8 % (0.0-4.0); HEMATOCRIT 31.3 % (36-52); HEMOGLOBIN 10.6 g/dL (12.0-18.0); LYMPHOCYTES # (AUTO) 1.7 K/uL (2.0-11.5); LYMPHOCYTES % (AUTO) 21.4 % (20.5-51.1); MEAN CORPUSCULAR HEMOGLOBIN 29 pg (27-31); MEAN CORPUSCULAR HGB CONC 34 g/dL (33-37); MEAN CORPUSCULAR VOLUME 85.3 fL (80-94); MONOCYTES % (AUTO) 12.7 % (1.7-9.3); NEUTROPHILS # (AUTO) 4.7 K/uL (1.8-7.7); NEUTROPHILS % (AUTO) 60.1 % (42.2-75.2); PLATELET COUNT (AUTO) 318 K/uL (140-450); RED BLOOD CELL COUNT(AUTO) 3.67 MIL/uL (4.20-6.10); RED CELL DISTRIBUTION WIDTH 12.9 % (11.6-13.7); WHITE BLOOD COUNT (AUTO) 7.9 K/uL (4.8-10.8)
[2022-10-25 07:56] LABS: ANION GAP 11.3 (8-16); CARBON DIOXIDE 29.5 mmol/L (21-32); CREATININE 0.9 mg/dL (0.6-1.3); POTASSIUM 3.8 mmol/L (3.5-5.1)
[2022-10-25 08:00] VITALS: BP_SYST 115; BP_DIAS 74; BP_DIAS 79
[2022-10-25] MEDS: INSULIN LANTUS 100 UNITS/ML 10 ML VIAL SUBQ SCH ×2 (08:50→20:39)
[2022-10-25] MEDS: INSULIN LISPRO SLIDING SCALE 100 UNITS/ML VIAL SUBQ PRN ×3 (11:45→20:36)
--- NOTE | 2022-10-25 13:00 | NUR ---
WOUND CARE DONE ON RIGHT FOOT. DRESSING CHANGED. TOLERATED WELL. NO C/O PAIN.
--- NOTE | 2022-10-25 13:10 | NUR ---
DR PHILLIPS AT BEDSIDE, EXAMINED PATIENT AND LEFT ORDERS. CONSENT FOR PICC LINE INSERTION SIGNED AND WITNESSED EXPRESSED UNDERSTANDING. Addendum: 10/25/22 at 1404 by JUAN ABEBE RN INCORRECT PATIENT
[2022-10-25 16:00] VITALS: BP 114/74
--- NOTE | 2022-10-25 19:18 | NUR ---
REPORT GIVEN TO DINORA RONDON IN STABLE CONDITION.
--- NOTE | 2022-10-25 19:20 | NUR ---
RECEIVED PATIENT LYING ON THE BED, PATIENT IS AWAKE, ALERT AND ORIENTED, PATIENT DENIES PAIN, NO DISTRESS NOTED. VANCO RUNNING ON LEFT AC ACCESS SITE. ALL SAFETY MEASURES IN PLACE.
[2022-10-25 20:00] VITALS: BP 117/69
--- NOTE | 2022-10-25 20:33 | NUR ---
BLOOD SUGAR IS 327 MG/ DL, GIVEN 8 UNITS INSULIN PER SLIDING SCALE AND 20 UNITS LANTUS SCHEDULED. ALL SAFETY MEASURES IN PLACE.
[2022-10-26 04:00] VITALS: BP 97/63
[2022-10-26] MEDS: PIPERACILLIN/TAZOBACTAM 3.375 GM in DEXTROSE 5% 50 ML IV SCH ×3 (04:44→21:28)
[2022-10-26] MEDS: VANCOMYCIN 1.25GM PREMIX 250 ML IV SCH (06:15)
[2022-10-26] MEDS: BLOOD GLUCOSE MONITORING 1 DEV DEV FS SCH ×4 (06:32→20:46)
[2022-10-26 06:45] LABS: BASOPHILS # (AUTO) 0.1 K/uL (0.00-0.22); EOSINOPHILS # (AUTO) 0.3 K/uL (0-0.4); EOSINOPHILS % (AUTO) 5.3 % (0.0-4.0); HEMATOCRIT 31.6 % (36-52); HEMOGLOBIN 10.8 g/dL (12.0-18.0); LYMPHOCYTES # (AUTO) 1.6 K/uL (2.0-11.5); LYMPHOCYTES % (AUTO) 23.7 % (20.5-51.1); MEAN CORPUSCULAR HEMOGLOBIN 29 pg (27-31); MEAN CORPUSCULAR HGB CONC 34 g/dL (33-37); MEAN CORPUSCULAR VOLUME 84.2 fL (80-94); MONOCYTES # (AUTO) 0.7 K/uL (0.8-1.0); MONOCYTES % (AUTO) 10.7 % (1.7-9.3); NEUTROPHILS # (AUTO) 3.9 K/uL (1.8-7.7); NEUTROPHILS % (AUTO) 59.3 % (42.2-75.2); PLATELET COUNT (AUTO) 341 K/uL (140-450); RED BLOOD CELL COUNT(AUTO) 3.75 MIL/uL (4.20-6.10); RED CELL DISTRIBUTION WIDTH 12.7 % (11.6-13.7); WHITE BLOOD COUNT (AUTO) 6.6 K/uL (4.8-10.8)
[2022-10-26 07:03] LABS: ANION GAP 10.3 (8-16); CARBON DIOXIDE 30.7 mmol/L (21-32); CREATININE 0.9 mg/dL (0.6-1.3)
--- NOTE | 2022-10-26 07:09 | NUR ---
ENDORSED PATIENT TO DAY NURSE FOR CONTINUITY OF CARE. PATIENT IN STABLE CONDITION.
--- NOTE | 2022-10-26 07:39 | NUR ---
RECEIVED PT CARE AND REPORT FROM CICI LEES. PT IS RESTING IN BED SEMI FOWLERS WITH OU CLOSED. NO VISIBLE S/S OF DISTRESS, DISCOMFORT, PAIN OR SOB. CALL LIGHT IS WITHIN REACH, ALL NEEDS MET AT THIS TIME.
[2022-10-26] MEDS: INSULIN LANTUS 100 UNITS/ML 10 ML VIAL SUBQ SCH ×2 (09:03→20:50)
[2022-10-26] MEDS: INSULIN LISPRO SLIDING SCALE 100 UNITS/ML VIAL SUBQ PRN ×3 (12:05→20:54)
--- NOTE | 2022-10-26 17:58 | NUR ---
4 UNITS OF INSULIN WAS GIVEN AT 1700 FOR BS 247. EMAR DID NOT SAVE.
--- NOTE | 2022-10-26 18:45 | NUR ---
PT IS SITTING UP IN BED, A&OX4, APPEARS CALM. NO VISIBLE S/S OF DISTRESS OR DISCOMFORT. DENIES ANY PAIN OR SOB AT THIS TIME. CALL LIGHT IS WITHIN REACH, ALL NEEDS MET AT THIS TIME. WILL ENDORSE TO NOC SHIFT.
--- NOTE | 2022-10-26 19:24 | NUR ---
RECEIVED REPORT FROM DAY SHIFT NURSE FOR CONTINUITY OF CARE. PT IS AWAKE, ALERT AND ORIENTED X4, AMBULATORY AND CONTINENT. PT IS CURRENTLY ON ROOM AIR WITH NO APPARENT SIGNS OF DISTRESS NOTED. PT REPORTS NO PAIN AT THIS TIME. PT'S IV SITE WAS INFILTRATED AND A NEW ONE WAS STARTED AT RIGHT FOREARM, 20 GAUGE. PT HAS DIABETIC ULCER AT LOWER RIGHT FOOT, PLANTAR REGION, AND MIDDLE TOE. WILL MAKE FREQUENT ROUNDS THROUGHOUT SHIFT.
[2022-10-26 20:00] VITALS: BP 125/78
--- NOTE | 2022-10-26 20:00 | NUR ---
Patient's Plan of Care was discussed and reviewed with ELECTRIC ACCOUNTING MACHINE OPERATOR: JESSA GARCIA
--- NOTE | 2022-10-26 21:00 | NUR ---
PT GLUCOSE LEVEL = 288, 6 UNITS OF HUMALOG WAS ADMINISTERED ON TOP OF 20 UNITS LANTUS PER MD ORDER. NO DISTRESS NOTED, WILL CONTINUE TO MONITOR.
[2022-10-26] MEDS ORDERED: PIPERACILLIN/TAZOBACTAM 3.375 GM VIAL IV ONE (21:21)
[2022-10-27 04:00] VITALS: BP 101/61
[2022-10-27] MEDS: PIPERACILLIN/TAZOBACTAM 3.375 GM in DEXTROSE 5% 50 ML IV SCH ×3 (04:48→21:11)
[2022-10-27 07:05] LABS: BASOPHILS % (AUTO) 0.7 % (0.0-2.0); EOSINOPHILS # (AUTO) 0.3 K/uL (0-0.4); HEMOGLOBIN 10.9 g/dL (12.0-18.0); LYMPHOCYTES # (AUTO) 1.3 K/uL (2.0-11.5); LYMPHOCYTES % (AUTO) 19.8 % (20.5-51.1); MEAN CORPUSCULAR HEMOGLOBIN 29 pg (27-31); MEAN CORPUSCULAR HGB CONC 34 g/dL (33-37); MEAN CORPUSCULAR VOLUME 84.2 fL (80-94); MONOCYTES # (AUTO) 0.6 K/uL (0.8-1.0); MONOCYTES % (AUTO) 9.3 % (1.7-9.3); NEUTROPHILS # (AUTO) 4.3 K/uL (1.8-7.7); NEUTROPHILS % (AUTO) 65.2 % (42.2-75.2); PLATELET COUNT (AUTO) 364 K/uL (140-450); RED CELL DISTRIBUTION WIDTH 12.9 % (11.6-13.7); WHITE BLOOD COUNT (AUTO) 6.6 K/uL (4.8-10.8)
[2022-10-27 07:06] LABS: ANION GAP 11.3 (8-16); CARBON DIOXIDE 28.8 mmol/L (21-32); CREATININE 0.8 mg/dL (0.6-1.3); POTASSIUM 4.1 mmol/L (3.5-5.1)
--- NOTE | 2022-10-27 07:20 | NUR ---
RECEIVED PT FROM [employer] NURSE FOR CONTINUITY OF CARE. PT IS AWAKE AND ALERT X4. ABLE TO VERBALIZE NEEDS. RESPIRATIONS EVEN AND UNLABORED ON RA. IV ON R F/A, SL. ALL SAFETY PRECAUTIONS IN PLACE. CALL LIGHT WITHIN REACH.
[2022-10-27] MEDS: BLOOD GLUCOSE MONITORING 1 DEV DEV FS SCH ×4 (07:38→20:49)
[2022-10-27] MEDS: INSULIN LISPRO SLIDING SCALE 100 UNITS/ML VIAL SUBQ PRN ×4 (07:38→20:50)
--- NOTE | 2022-10-27 07:42 | NUR ---
PT 0730 BLOOD GLUCOSE LEVEL = 167, 2 UNITS OF INSULIN WAS ADMINISTERED. PT SLEPT WELL THROUGHOUT THE NIGHT. ENDORSED TO DAY SHIFT NURSE IN STABLE CONDITION.
[2022-10-27] MEDS: INSULIN LANTUS 100 UNITS/ML 10 ML VIAL SUBQ SCH ×2 (09:24→20:47)
[2022-10-27 16:00] VITALS: BP 107/64
--- NOTE | 2022-10-27 19:13 | NUR ---
ENDORSED PT TO [employer] NURSE FOR CONTINUITY OF CARE. PT IS STABLE.
--- NOTE | 2022-10-27 19:14 | NUR ---
RECEIVED REPORT FROM ALONDRA FOR CONTINUITY OF CARE. PT AWAKE, SITTING IN BED. AMBULATORY. RESPIRATIONS EVEN AND UNLABORED ON RA. DENIES PAIN. RIGHT FOOT COVERED WITH BANDAGE, DRY AND INTACT. POC DISCUSSED WITH PT AND YOANA YIN. CALL LIGHT WITHIN REACH. SAFETY PRECAUTIONS IN PLACE.
--- NOTE | 2022-10-27 19:30 | NUR ---
DR WADE AT BEDSIDE, DISCUSSED POC WITH THE PT. ASSISTED MD TO CHANGE WOUND DRESSING. PT TOLERATED WELL.
[2022-10-27 20:00] VITALS: BP 109/66
[2022-10-27] MEDS ORDERED: FLUCONAZOLE 100 MG TAB PO SCH ×2 (20:00→20:10)
--- NOTE | 2022-10-27 20:00 | NUR ---
Patient's Plan of Care was discussed and reviewed with DEVENDRA: BOB
--- NOTE | 2022-10-27 20:57 | NUR ---
ADMINISTERED DUE MEDS. PT TOLERATED WELL.
--- NOTE | 2022-10-28 04:05 | NUR ---
V/S TAKEN. DENIES ANY PAIN. NO DISTRESS NOTED. SAFETY PRECAUTIONS IN PLACE.
[2022-10-28] MEDS: PIPERACILLIN/TAZOBACTAM 3.375 GM in DEXTROSE 5% 50 ML IV SCH ×3 (04:51→21:46)
[2022-10-28] MEDS: BLOOD GLUCOSE MONITORING 1 DEV DEV FS SCH ×4 (06:39→20:48)
--- NOTE | 2022-10-28 06:39 | NUR ---
NO SLIDING SCALE INSULIN FOR BS 73. GIVEN PT SNACKS. PT NO COMPLAINTS OF ANY DISCOMFORT.
--- NOTE | 2022-10-28 07:05 | NUR ---
RECEIVED REPORT FROM IT INTERN FOR CONTINUITY OF CARE. INITIAL ASSESSMENT. OPEN TO RT FOOT. DRESSING INTACT. NO C/O PAIN OR DISCOMFORT. CALL LIGHT KEPT WITHIN REACH. WILL CONTINUE TO MONITOR.
--- NOTE | 2022-10-28 07:10 | NUR ---
GAVE BEDSIDE REPORT TO DEVENDRA VERDUZCO FOR CONTINUITY OF CARE. PT IS STABLE.
[2022-10-28 08:00] VITALS: BP 103/71
[2022-10-28] MEDS: FLUCONAZOLE 100 MG TAB PO SCH (09:24)
[2022-10-28] MEDS: INSULIN LANTUS 100 UNITS/ML 10 ML VIAL SUBQ SCH ×2 (09:24→20:44)
--- NOTE | 2022-10-28 09:24 | NUR ---
SCHEDULED MEDICATIONS WAS GIVEN. TOLERATING WELL.
[2022-10-28] MEDS: INSULIN LISPRO SLIDING SCALE 100 UNITS/ML VIAL SUBQ PRN ×2 (11:57→17:19)
--- NOTE | 2022-10-28 11:57 | NUR ---
BS CHECKED 297. INSULIN WAS GIVEN PER SLIDING SCALE.
[2022-10-28 16:00] VITALS: BP 110/70
--- NOTE | 2022-10-28 17:00 | NUR ---
MADE CLARIFICATION TO DR. PHILLIPS REGARDING HOME HEALTH FOR WOUND CARE. PER DRSarina PT MAY DISCHARGE TO HOME, WITH FOLLOW UP WITH [facility]. PT MADE AWARE.
--- NOTE | 2022-10-28 17:20 | NUR ---
BS CHECKED 223. INSULIN WAS GIVEN PER SLIDING SCALE.
--- NOTE | 2022-10-28 19:15 | NUR ---
REPORT GIVEN TO BOB FOR CONTINUITY OF CARE. REMAINS STABLE.
--- NOTE | 2022-10-28 19:16 | NUR ---
RECEIVED REPORT FROM DEVENDRA VERDUZCO FOR CONTINUITY OF CRAE. PT AWAKE IN BED. RESPIRATIONS EVEN AND UNLABORED ON RA. NO DISTRESS NOTED. DENIES PAIN. NOTED FIGHT FOOT COVERED WITH BANDAGE, DRY AND INTACT. POC DISCUSSED WITH PT AND YOANA MENDOZA. CALL LIGHT WITHIN REACH. SAFETY PRECAUTIONS IN PLACE.
--- NOTE | 2022-10-28 19:19 | NUR ---
10/28/22 RD FOLLOW UP COMPLETED.PLEASE REFER TO NUTRITION ASSESSMENT UNDER CARE ACTIVITY FOR ESTIMATED NUTRITIONAL NEEDS. 1. CONTINUE CCHO 60 GM DIET TOLERATED 2. CONTINUE CARITO BID PER RX PROTOCOL FOR WOUND SUPPORT (PROVIDES 160 KCAL AND 5 GM PROTEIN DAILY) 3. RD TO FOLLOW-UP IN 3-5 DAYS PATIENT IS MODERATE RISK. JOYCE LAURENT RD
[2022-10-28 20:00] VITALS: BP 123/74
--- NOTE | 2022-10-28 20:48 | NUR ---
ADMINISTERED DUE MED. NO SLIDING SCALE INSULIN FOR BS 128.
[2022-10-29] MEDS: PIPERACILLIN/TAZOBACTAM 3.375 GM in DEXTROSE 5% 50 ML IV SCH ×3 (05:53→20:18)
[2022-10-29] MEDS: BLOOD GLUCOSE MONITORING 1 DEV DEV FS SCH ×4 (06:40→20:16)
[2022-10-29] MEDS: INSULIN LISPRO SLIDING SCALE 100 UNITS/ML VIAL SUBQ PRN ×4 (06:40→20:18)
--- NOTE | 2022-10-29 06:42 | NUR ---
SLIDING SCALE INSULIN ADMINISTERED FOR BS 320.
--- NOTE | 2022-10-29 07:15 | NUR ---
GAVE BEDSIDE REPORT TO DEVENDRA CANTU FOR CONTINUITY OF CARE. PT IS STABLE.
--- NOTE | 2022-10-29 07:16 | NUR ---
RECEIVED PT FROM SALESPERSON WOMEN'S DRESSES NURSE FOR CONTINUITY OF CARE. PT IS IN BED SLEEPING. VISIBLE CHEST RISE/FALL. RESPIRATIONS EVEN AND UNLABORED ON 3L VIA NC. IV ON R A/C 20G INFUSING NS @100CC. ALL SAFETY PRECAUTIONS IN PLACE. CALL LIGHT WITHIN REACH. Addendum: 10/29/22 at 1932 by Sheila Appiah LVN WRONG PATIENT.
--- NOTE | 2022-10-29 07:18 | NUR ---
RECEIVED PT FROM FILE CLERK DATA ENTRY NURSE FOR CONTINUITY OF CARE. PT IS AWAKE, ALERT AND ORIENTED X4. ABLE TO VERBALIZE NEEDS. RESPIRATIONS EVEN AND UNLABORED ON RA. IV ON R F/A 20G. ALL SAFETY PRECAUTIONS IN PLACE. CALL LIGHT WITHIN REACH.
[2022-10-29 08:00] VITALS: BP 102/59
[2022-10-29] MEDS: FLUCONAZOLE 100 MG TAB PO SCH (08:47)
[2022-10-29] MEDS: INSULIN LANTUS 100 UNITS/ML 10 ML VIAL SUBQ SCH ×2 (09:11→20:17)
[2022-10-29 16:00] VITALS: BP 103/65
--- NOTE | 2022-10-29 16:25 | NUR ---
INFORMED DR WADE THERE ARE CURRENTLY NO ORDERS FOR WOUND CARE. PER DR WADE DAILY DRESSING CHANGE WITH BETADINE, GAUZE AND WRAP WITH KERLIX. DRESSING CHANGE DONE.
--- NOTE | 2022-10-29 19:31 | NUR ---
ENDORSED PT TO TOP POLISHER NURSE FOR CONTINUITY OF CARE. PT IS STABLE.
--- NOTE | 2022-10-29 19:35 | NUR ---
RECEIVED PT IN BED AWAKE,ALERT AND ORIENTED X 4. DENIES PAIN AT THIS TIME. NO ACUTE RESPIRATORY DISTRESS NOTED. RIGHT FOOT DRESSING IN PLACE, CDI. SKIN WARM AND DRY TO TOUCH. SAFETY PRECAUTION IN PLACE, CALL LIGHT IN REACH, ENCOURAGED TO CALL IF ASSISTANCE IS NEEDED, PT VERBALLY ACKNOWLEDGED.
--- NOTE | 2022-10-29 20:00 | NUR ---
DR. WADE IS AT THE BEDSIDE TALKING WITH THE PT.
[2022-10-29 23:42] VITALS: BP 106/71
--- NOTE | 2022-10-29 23:45 | NUR ---
VITAL SIGNS TAKEN AND DOCUMENTED. DENIES PAIN AT THIS TIME. CALL LIGHT WITHIN REACH.
[2022-10-30] MEDS: PIPERACILLIN/TAZOBACTAM 3.375 GM in DEXTROSE 5% 50 ML IV SCH ×2 (05:01→12:32)
--- NOTE | 2022-10-30 05:50 | NUR ---
AM CARE RENDERED. MADE COMFORTABLE IN BED. NO RESIDUAL FROM G-TUBE, HEAD OF THE BED ELEVATED. CALL LIGHT IN REACH. Addendum: 10/30/22 at 0613 by Pita El RN WRONG PATIENT.
--- NOTE | 2022-10-30 06:14 | NUR ---
PATIENT IS AWAKE, ALERT AND ORIENTED. NO DISTRESS NOTED. ALL NEEDS ATTENDED TO. SAFETY PRECAUTIONS MAINTAINED DURING THE SHIFT, CALL LIGHT REMAINS WITHIN REACH.
[2022-10-30] MEDS: BLOOD GLUCOSE MONITORING 1 DEV DEV FS SCH ×2 (06:30→12:11)
[2022-10-30 06:52] LABS: BASOPHILS # (AUTO) 0.1 K/uL (0.00-0.22); EOSINOPHILS # (AUTO) 0.3 K/uL (0-0.4); EOSINOPHILS % (AUTO) 4.8 % (0.0-4.0); HEMATOCRIT 34.1 % (36-52); HEMOGLOBIN 11.6 g/dL (12.0-18.0); LYMPHOCYTES # (AUTO) 1.7 K/uL (2.0-11.5); LYMPHOCYTES % (AUTO) 30.5 % (20.5-51.1); MEAN CORPUSCULAR HEMOGLOBIN 29 pg (27-31); MEAN CORPUSCULAR HGB CONC 34 g/dL (33-37); MEAN CORPUSCULAR VOLUME 83.7 fL (80-94); MONOCYTES # (AUTO) 0.6 K/uL (0.8-1.0); MONOCYTES % (AUTO) 9.7 % (1.7-9.3); NEUTROPHILS # (AUTO) 3.1 K/uL (1.8-7.7); PLATELET COUNT (AUTO) 414 K/uL (140-450); RED BLOOD CELL COUNT(AUTO) 4.08 MIL/uL (4.20-6.10); RED CELL DISTRIBUTION WIDTH 13.3 % (11.6-13.7); WHITE BLOOD COUNT (AUTO) 5.7 K/uL (4.8-10.8)
--- NOTE | 2022-10-30 07:01 | NUR ---
RECEIVED REPORT FROM NIGHT NURSE RAKESH FOR CONTINUITY OF CARE. INITIAL ASSESSMENT DONE. IV ON SL. IV SITE INTACT AND PATENT. CALL LIGHT KEPT WITHIN REACH. WILL CONTINUE TO MONITOR.
[2022-10-30 07:04] LABS: ANION GAP 8.4 (8-16); CARBON DIOXIDE 31.5 mmol/L (21-32); CREATININE 0.9 mg/dL (0.6-1.3); POTASSIUM 3.9 mmol/L (3.5-5.1)
[2022-10-30 08:00] VITALS: BP 108/71
[2022-10-30] MEDS: INSULIN LANTUS 100 UNITS/ML 10 ML VIAL SUBQ SCH (08:29)
[2022-10-30] MEDS: FLUCONAZOLE 100 MG TAB PO SCH (08:33)
--- NOTE | 2022-10-30 08:33 | NUR ---
BS CHECKED 142. SCHEDULED LANTUS 20 UNITS GIVEN. SCHEDULED PO MEDICATION GIVEN. TOLERATING WELL.
[2022-10-30 08:51] LABS: MAGNESIUM 1.9 mg/dL (1.8-2.4); PHOSPHORUS 3.8 mg/dL (2.5-4.9)
[2022-10-30] MEDS ORDERED: SULF-59 PO (12:05)
[2022-10-30] MEDS ORDERED: CLIN300C2 PO (12:05)
[2022-10-30] MEDS: INSULIN LISPRO SLIDING SCALE 100 UNITS/ML VIAL SUBQ PRN (12:11)
--- NOTE | 2022-10-30 12:11 | NUR ---
BS CHECKED 265. INSULIN GIVEN PER SLIDING SCALE.
--- NOTE | 2022-10-30 12:32 | NUR ---
SCHEDULED IV ABT ZOSYN WAS GIVEN BY RAMÍREZ LEES. TOLERATING WELL.
--- NOTE | 2022-10-30 14:35 | NUR ---
PT LEFT. DISCHARGE TO HOME. TRANSPORTED VIA PRIVATE CAR. AMBULATORY. ACCOMPANIED BY HIS SISTER. IV AND ID BAND REMOVED. DISCHARGE PAPERWORK DISCUSS AND SIGNED BY PT. WOUND CARE DONE PRIOR DISCHARGE. NO C/O PAIN OR DISCOMFORT. REMAINS STABLE.
== END 2022-10-30 15:01 | disposition home or self-care (01) | DRG 638 ==
LOC: MED 14:25 → MTU 17:37
PROVIDERS: ADMIT Family Medicine; ATTEND Family Medicine
DX: E11.621 Type 2 diabetes mellitus with foot ulcer (principal); E11.52 Type 2 diabetes mellitus with diabetic peripheral angiopathy with gangrene; I96 Gangrene, not elsewhere classified; M86.8X7 Other osteomyelitis, ankle and foot; L03.115 Cellulitis of right lower limb; E11.69 Type 2 diabetes mellitus with other specified complication; E83.42 Hypomagnesemia; D64.9 Anemia, unspecified; Z20.822 Contact with and (suspected) exposure to COVID-19
CPT/HCPCS: 36415; 73630; 78315; 80048; 80053; 80202; 82948; 83605; 83735; 84100; 85025; 85651; 86140; 87040; 87070; 87075; 87081; 87205; 96365; 96375; 99285; J1815; J2543; J3370; J3372; J3475; J7060; Q0092